=== PATIENT | male | born 1955 | race Caucasian/White ===

== ENCOUNTER 2019-09-06 05:00 | Inpatient (IN) | payer MEDICARE, OTHER, SELFPAY ==
[2019-09-06] VITALS (9 sets, daily range): BP systolic 158–180; BP diastolic 71–102; PULSE 58–73; RESP 16–26; TEMP 36–37; O2SAT 99–100
--- NOTE | ~2019-09-06 | CT_ITS ---
EXAMINATION: CT abdomen pelvis w con DATE: 09/06/2019 06:38 INDICATION: Generalized abdominal pain. TECHNIQUE: Computed tomography (CT) of the abdomen and pelvis was performed with 100 mL Omnipaque 350 intravenous contrast. Automated exposure control and iterative reconstruction technique were employe d. The dose-length product was 825.82 mGy-cm. COMPARISON: CT abdomen and pelvis 04/14/2019 FINDINGS: The visualized portions of the lung bases are clear without pneumonia or pleural effusion. The heart size is normal. No pericardial effusion. There are coronary artery calcifications. There ar e changes of fundoplication of the stomach. The wrap is partially above the diaphragm. The liver, gal lbladder, spleen, pancreas, adrenal glands, and left kidney are normal. There are cysts in right kidn ey measuring up to 15 mm. The bladder is distended. The appendix measures 8 mm without change, likely normal. There are no pathologically enlarged lymph nodes. There is no free intraperitoneal fluid. Th ere are likely changes of left inguinal hernia repair. There are chronic compression fractures of T10 and T11. There are chronic burst fractures of L1 and L3 with changes of vertebroplasty. IMPRESSION: 1. Fundoplication with wrap partially above the diaphragm without change. Reviewed, dictated and finalized at location A.
--- NOTE | 2019-09-06 05:13 | ED.ABDPAIN ---
HPI - Abdominal Pain General Chief Complaint: Abdominal Pain <Saad Browning DO - Last Filed: 09/06/19 05:15> Stated Complaint: abd pain <Saad Browning DO - Last Filed: 09/06/19 05:15> Time Seen by Provider: 09/06/19 05:02 <Saad Browning DO - Last Filed: 09/06/19 05:15> Source: RN notes reviewed <Saad Browning DO - Last Filed: 09/06/19 05:15> History of Present Illness HPI narrative: Patient presents emergency department from home for abdominal pain. Patient states symptoms began earlier today. The abdominal pain is located diffusely throughout the abdomen with increased tenderness in the upper abdominal region. Patient states symptoms are associated with nausea and vomiting. Denies any fevers or chills chest pain shortness of breath diarrhea or any other symptoms. States last bowel movement was yesterday. <Saad Browning DO - Last Filed: 09/06/19 05:15> Related Data Home Medications: Home Medications Medication Instructions Recorded Confirmed amitriptyline 25 mg PO HS 04/10/19 04/14/19 escitalopram oxalate [Lexapro] 10 mg PO DAILY 04/10/19 04/14/19 rosuvastatin [Crestor] 20 mg PO DAILY 04/10/19 04/14/19 <Saad Browning DO - Last Filed: 09/06/19 05:15> Allergies/Adverse Reactions: Allergies Allergy/AdvReac Type Severity Reaction Status Date / Time morphine AdvReac Mild Itching Verified 09/06/19 08:06 <Saad Browning DO - Last Filed: 09/06/19 05:15> Review of Systems Review of Systems: Narrative: Gen.: Denies fevers or chills Eyes: Denies eye pain or visual change ENT: Denies congestion Respiratory: Denies shortness of breath or cough CV: Denies chest pain or palpitations GI: See HPI Musculoskeletal: Denies back pain or muscle pain Neuro: Denies numbness, tingling, weakness or focal weakness Skin: Denies rash Except as documented, all other systems reviewed and negative <Saad Browning DO - Last Filed: 09/06/19 05:15> PMFSH Past Medical History Medical History: Medical History Anxiety Bipolar disorder 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 Hyperlipidemia Hypertension Hypothyroidism Obstructive sleep apnea Pre-diabetes Hemoglobin A1c was 6.1 on April 11, 2019. Reflux esophagitis SBO (small bowel obstruction) <Saad Browning DO - Last Filed: 09/06/19 05:15> Surgical History Surgical History: Surgical History (Updated 04/15/19 @ 01:34 by Dia Teixeira PA-C) History of kyphoplasty L1. History of repair of hiatal hernia June 2018, with redo shortly thereafter. Performed at the [facility] in [place]. Hx of excision of Zenker's diverticulum September 2018 at [facility]. <Saad Browning DO - Last Filed: 09/06/19 05:15> Social History Social History: Social History Social History: He lives in his own home in [place]. His ex- in her son are currently living with him. 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 He gets most of [facility] at the [facility] [place]. He smoked up to 2 packs of cigarettes per day and quit about 4 years ago. He used to abuse alcohol and stopped drinking 4 years ago. He smokes medical marijuana approximately 3 times per day due to chronic pain. Formally, he was addicted to prescription opioids. His sister and a friend are his emergency contacts. He wishes to be a full code. Smoking status: Former smoker Tobacco type: cigarettes Second hand tobacco smoke exposure: Yes Smoking end date: 04/05/15 Alcohol intake: former Substance use: current Substance use type: marijuana Last use: 04/13/19 Gender identity (if verbalized by the patient): Male Spiritual care concerns: No Agree to blood products: Yes <Elizabeth Banerjee
[2019-09-06] MEDS: HYDROMORPHONE HCL 1 MG/ML INJ IV PUSH ×2 (05:25→09:08)
[2019-09-06] MEDS: ONDANSETRON INJ 4 MG/2 ML VIAL IV PUSH ×3 (05:25→14:14)
[2019-09-06] MEDS: SODIUM CHLORIDE 0.9% IV 1,000 ML 999 ML IV CONT ×2 (05:25→06:52)
[2019-09-06 05:36] LABS: Basophils Percent Auto 0.2 % (0.2-1.2); Eosinophils Absolute Auto 0.2 K/mm3 (0-0.3); Eosinophils Percent Auto 1.5 % (0-4.4); Hematocrit 47.9 % (42.0-52.0); Hemoglobin 16.5 g/dL (14.0-18.0); Immature Granulocyte Absolute 0.07 K/mm3 (0.00-0.031); Immature Granulocyte Percent A 0.6 % (0-0.5); Lymphocytes Absolute Auto 1.77 K/mm3 (0.9-3.2); Lymphocytes Percent Auto 14.4 % (18.3-44.2); Mean Corpuscular HGB Conc 34.4 g/dl (32-36); Mean Corpuscular Hemoglobin 30.8 pg (26-34); Mean Corpuscular Volume 89.5 fl (80-100); Mean Platelet Volume 10.3 fl (7.4-10.4); Monocytes Absolute Auto 0.9 K/mm3 (0.1-0.6); Monocytes Percent Auto 7.2 % (2.6-8.5); Neutrophils Absolute Auto 9.4 K/mm3 (1.3-6.7); Neutrophils Percent Auto 76.1 % (45.5-73.1); Platelet Count Result 243 k/mm3 (150-375); Red Blood Count 5.35 M/mm3 (4.6-6.20); White Blood Count 12.3 K/mm3 (4.5-10.0)
[2019-09-06 05:51] LABS: Lipase 24 U/L (23-300)
[2019-09-06 06:14] LABS: Albumin Level 4.7 g/dL (3.5-5.1); Alkaline Phosphatase 115 U/L (38-126); Aspartate Amino Transferase 26 U/L (17-59); Blood Urea Nitrogen 10 mg/dL (9-20); Calcium 9.8 mg/dL (8.4-10.2); Carbon Dioxide 16 mmol/L (22-30); Chloride 100 mmol/L (98-107); Estimated Glomerular Filt Rate > 60; Glucose 230 mg/dL (75-110); Lactic Acid Reflex 5.8 mmol/L (0.7-2.1); Potassium 3.9 mmol/L (3.4-5.0); Sodium 132 mmol/L (137-145)
[2019-09-06 07:10] LABS: Alanine Aminotransferase 21 U/L (4-50)
[2019-09-06 08:32] LABS: Reflex Lactic Acid Yes or No Add Lactic
[2019-09-06 08:35] LABS: Add Urine Microscopic? YES; Appearance Urine Clear (Clear); Bilirubin Urine Negative (Negative); Blood Urine Negative (Negative); Color Urine Colorless (Yellow); Glucose Urine UA 2+ mg/dL (Negative); Ketones Urine 1+ mg/dL (Negative); Leukocyte Esterase Ur Negative LEU/UL (Negative); Nitrate Urine Negative (Negative); Protein Urine Negative (Negative); Urobilinogen Urine Negative mg/dL (<2.0); WBC Urine 0-3 /hpf
[2019-09-06 08:41] LABS: Specific Grav Ur 1.032 (1.001-1.035)
[2019-09-06] MEDS: LACTATED RINGERS 1,000 ML 150 ML IV CONT ×2 (09:06→17:45)
[2019-09-06 09:12] LABS: Lactic Acid 3.5 mmol/L (0.7-2.1)
[2019-09-06] MEDS: HYDROMORPHONE HCL 1 MG/ML INJ 0.5 MG IV PUSH ×2 (14:10→15:09)
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
[2019-09-06] MEDS: LORATADINE 10 MG TABLET PO (14:56)
[2019-09-06] MEDS: atenoloL 25 MG TABLET PO (14:56)
[2019-09-06] MEDS: ESCITALOPRAM OXALATE 10 MG TABLET 20 MG PO (14:56)
[2019-09-06] MEDS: SIMETHICONE 80 MG TAB.CHEW PO ×3 (14:56→20:51)
[2019-09-06] MEDS: SIMVASTATIN 20 MG TABLET PO (17:44)
[2019-09-06] MEDS: FLUTICASONE PROPIONATE 0.05% NA SPR 16 GM BTL (*BKC) 2 SPRAY NASAL (17:44)
[2019-09-06] MEDS: LORAZEPAM INJ 2 MG/ML VIAL 1 MG IV PUSH (18:02)
[2019-09-06] MEDS: SENNOSIDES 8.6 MG TABLET PO (20:51)
[2019-09-06] MEDS: AMITRIPTYLINE HCL 25 MG TABLET 50 MG PO (20:51)
[2019-09-06] MEDS: PANTOPRAZOLE SODIUM IV 40 MG VIAL IV PUSH (20:52)
[2019-09-06] MEDS: polyethylene glycoL 3350 17 GM POWD.PACK PO (20:52)
[2019-09-07 04:55] LABS: Basophils Percent Auto 0.2 % (0.2-1.2); Eosinophils Percent Auto 0.2 % (0-4.4); Hematocrit 42.9 % (42.0-52.0); Hemoglobin 14.6 g/dL (14.0-18.0); Immature Granulocyte Absolute 0.07 K/mm3 (0.00-0.031); Immature Granulocyte Percent A 0.6 % (0-0.5); Lymphocytes Absolute Auto 1.77 K/mm3 (0.9-3.2); Lymphocytes Percent Auto 14.9 % (18.3-44.2); Mean Corpuscular Hemoglobin 30.9 pg (26-34); Mean Corpuscular Volume 90.9 fl (80-100); Mean Platelet Volume 9.8 fl (7.4-10.4); Monocytes Percent Auto 8.5 % (2.6-8.5); Neutrophils Percent Auto 75.6 % (45.5-73.1); Platelet Count Result 202 k/mm3 (150-375); Red Blood Count 4.72 M/mm3 (4.6-6.20); Red Cell Distribution Width 13.2 % (11.5-14.5); White Blood Count 11.9 K/mm3 (4.5-10.0)
[2019-09-07 05:14] LABS: Hemoglobin A1C 6.2 % (<5.7)
[2019-09-07 05:45] LABS: Alanine Aminotransferase 11 U/L (4-50); Albumin Level 3.8 g/dL (3.5-5.1); Alkaline Phosphatase 73 U/L (38-126); Aspartate Amino Transferase 22 U/L (17-59); Bilirubin,Total 0.5 mg/dL (0.2-1.3); Blood Urea Nitrogen 8 mg/dL (9-20); Calcium 8.6 mg/dL (8.4-10.2); Carbon Dioxide 26 mmol/L (22-30); Chloride 102 mmol/L (98-107); Estimated Glomerular Filt Rate > 60; Glucose 115 mg/dL (75-110); Magnesium 1.9 mg/dL (1.6-2.3); Potassium 3.8 mmol/L (3.4-5.0); Sodium 135 mmol/L (137-145)
[2019-09-07 06:00] VITALS: BP 105/81; PULSE 58; RESP 18; TEMP 36.7; O2SAT 100
[2019-09-07] MEDS: LEVOTHYROXINE SODIUM 75 MCG TABLET PO (06:21)
[2019-09-07] MEDS: SIMETHICONE 80 MG TAB.CHEW PO ×6 (06:21→20:20)
[2019-09-07] MEDS: LACTATED RINGERS 1,000 ML 150 ML IV CONT (06:52)
[2019-09-07] MEDS: ONDANSETRON INJ 4 MG/2 ML VIAL IV PUSH ×2 (06:54→17:21)
[2019-09-07] MEDS: HYDROMORPHONE HCL 1 MG/ML INJ 0.5 MG IV PUSH ×2 (06:54→17:22)
[2019-09-07] MEDS: LORATADINE 10 MG TABLET PO (08:09)
[2019-09-07] MEDS: PANTOPRAZOLE SODIUM IV 40 MG VIAL IV PUSH ×2 (08:09→20:20)
[2019-09-07] MEDS: ESCITALOPRAM OXALATE 10 MG TABLET 20 MG PO (08:09)
[2019-09-07 08:10] VITALS: PULSE 60
[2019-09-07] MEDS: atenoloL 25 MG TABLET PO (08:10)
--- NOTE | 2019-09-07 11:27 | PM.IMPN ---
Progress Note: A&P Assessment and Plan (1) Nausea & vomiting: Qualifiers: Vomiting Intractability: non-intractable Vomiting type: unspecified Qualified Code(s): R11.2 - Nausea with vomiting, unspecified Code(s): R11.2 - Nausea with vomiting, unspecified Status: Acute Assessment and Plan: Likely related to prior surgery with gastric fundoplication as well as excision of Zenker diverticulum Continue conservative management (2) Lactic acidosis: Code(s): E87.2 - Acidosis Status: Acute Assessment and Plan: Chronically lactic acidemia worsened with spells of nausea vomiting (3) Pre-diabetes: Code(s): R73.03 - Prediabetes Status: Chronic Assessment and Plan: Diabetic diet when advanced Monitor sugars (4) Hypothyroidism: Qualifiers: Hypothyroidism type: acquired Qualified Code(s): E03.9 - Hypothyroidism, unspecified Code(s): E03.9 - Hypothyroidism, unspecified Status: Chronic (5) Hypertension: Qualifiers: Hypertension type: essential hypertension Qualified Code(s): I10 - Essential (primary) hypertension Code(s): I10 - Essential (primary) hypertension Status: Chronic (6) Hx of excision of Zenker's diverticulum: Code(s): Z98.890 - Other specified postprocedural states; Z87.19 - Personal history of other diseases of the digestive system Status: Chronic (7) History of repair of hiatal hernia: Code(s): Z98.890 - Other specified postprocedural states; Z87.19 - Personal history of other diseases of the digestive system Status: Chronic Subjective Date/time seen: 09/07/19 11:27 Interval history: Admitted September 05 with upper abdominal pain nausea vomiting and lactic acidosis. Patient has a history of 2 fundoplication is a performed by a thoracic surgeon at the [facility] in [place]. Since then he has had recurrent episodes of abdominal pain nausea vomiting with elevated lactate. 09/06 having much less upper abdominal pain. No further emesis. Tolerating clear liquids. Denied chest pain or shortness of breath. Denied abnormal bleeding. Denied focal weakness or numbness. Denied swelling. Review of Systems Review of Systems: All systems reviewed & are unremarkable except as noted in HPI and below Exam Narrative: Exam Narrative: HEENT: EOMI, PERRL, sclera nonicteric, pharyngeal mucosa pink and intact NECK: No JVD CHEST: Clear to auscultation. Normal effort. HEART: NL S1/S2, regular, no murmur ABDOMEN: BS+, soft, nontender, no mass, no bruits EXTREMITIES: No cyanosis, edema, or clubbing NEUROLOGIC: CN intact and symmetric to inspection. MUSCULOSKELETAL: Tone and strength symmetric. PSYCH: Alert. Oriented to person, place, and time. Objective Data Vital Signs Vital Signs: Vital Signs - 24 hr 09/06/19 14:00 09/06/19 14:56 09/06/19 20:00 Temperature 98.2 F Pulse Rate 58 L 58 L 58 L Respiratory Rate 16 16 Blood Pressure 163/89 H Pulse Oximetry 100 100 09/06/19 22:00 09/07/19 06:00 09/07/19 08:10 Temperature 98.6 F 98.0 F Pulse Rate 65 58 L 60 Respiratory Rate 18 18 Blood Pressure 158/71 H 105/81 Pulse Oximetry 100 100 Intake/Output Intake/Output: Intake & Output 09/04/19 09/05/19 09/06/19 09/07/19 23:59 23:59 23:59 23:59 Intake Total 3450 2030 Balance 3450 2030 Meds/Results Medications: Active Medications Generic Name Dose Route Start Last Admin Trade Name Freq PRN Reason Stop Dose Admin Amitriptyline HCl 50 mg 09/06/19 21:00 09/06/19 20:51 Elavil PO 50 mg HS SREE Administration Atenolol 25 mg 09/06/19 09:00 09/07/19 08:10 Tenormin PO 25 mg DAILY SREE Administration Escitalopram Oxalate 20 mg 09/06/19 09:00 09/07/19 08:09 Lexapro PO 20 mg DAILY SREE Administration Fluticasone Propionate 2 spray 09/06/19 09:00 09/07/19 08:10 Flonase 0.05% Nasal [place] NASAL Not Given DAILY SREE
[2019-09-07 14:00] VITALS: BP 128/75; PULSE 54; RESP 18; TEMP 36.9; O2SAT 99
[2019-09-07] MEDS: LACTATED RINGERS 1,000 ML 100 ML IV CONT (15:18)
[2019-09-07] MEDS: SIMVASTATIN 20 MG TABLET PO (17:21)
[2019-09-07] MEDS: SENNOSIDES 8.6 MG TABLET PO (20:19)
[2019-09-07] MEDS: polyethylene glycoL 3350 17 GM POWD.PACK PO (20:20)
[2019-09-07] MEDS: AMITRIPTYLINE HCL 25 MG TABLET 50 MG PO (20:20)
[2019-09-07 21:23] VITALS: BP 139/82; PULSE 58; RESP 16; TEMP 36.3; O2SAT 97
[2019-09-08] MEDS: LACTATED RINGERS 1,000 ML 100 ML IV CONT (01:44)
[2019-09-08 04:55] LABS: Hematocrit 41.1 % (42.0-52.0); Mean Corpuscular HGB Conc 34.1 g/dl (32-36); Mean Corpuscular Hemoglobin 30.9 pg (26-34); Mean Corpuscular Volume 90.7 fl (80-100); Mean Platelet Volume 9.6 fl (7.4-10.4); Platelet Count Result 144 k/mm3 (150-375); Red Blood Count 4.53 M/mm3 (4.6-6.20); Red Cell Distribution Width 13.2 % (11.5-14.5)
[2019-09-08 05:05] LABS: Blood Urea Nitrogen 10 mg/dL (9-20); Calcium 8.3 mg/dL (8.4-10.2); Carbon Dioxide 31 mmol/L (22-30); Chloride 103 mmol/L (98-107); Estimated Glomerular Filt Rate > 60; Glucose 96 mg/dL (75-110); Potassium 3.5 mmol/L (3.4-5.0); Sodium 135 mmol/L (137-145)
[2019-09-08 05:06] LABS: Lactic Acid 0.7 mmol/L (0.7-2.1)
[2019-09-08 05:21] VITALS: BP 141/78; PULSE 64; RESP 16; TEMP 36.4; O2SAT 99
[2019-09-08] MEDS: SIMETHICONE 80 MG TAB.CHEW PO ×2 (05:58→09:05)
[2019-09-08] MEDS: LEVOTHYROXINE SODIUM 75 MCG TABLET PO (05:58)
[2019-09-08 08:00] VITALS: PULSE 64; RESP 16; O2SAT 99
--- NOTE | 2019-09-08 08:30 | PM.DS ---
DS: Diagnosis Admitting Diagnosis Admitting Diagnosis: Generalized abdominal pain Discharge Diagnosis (1) Nausea & vomiting: Qualifiers: Vomiting Intractability: non-intractable Vomiting type: unspecified Qualified Code(s): R11.2 - Nausea with vomiting, unspecified Code(s): R11.2 - Nausea with vomiting, unspecified Status: Acute Assessment and Plan: Likely related to prior surgery with gastric fundoplication as well as excision of Zenker diverticulum Continue conservative management (2) Lactic acidosis: Code(s): E87.2 - Acidosis Status: Acute Assessment and Plan: Chronically lactic acidemia worsened with spells of nausea vomiting (3) Pre-diabetes: Code(s): R73.03 - Prediabetes Status: Chronic Assessment and Plan: Diabetic diet when advanced Monitor sugars (4) Hypothyroidism: Qualifiers: Hypothyroidism type: acquired Qualified Code(s): E03.9 - Hypothyroidism, unspecified Code(s): E03.9 - Hypothyroidism, unspecified Status: Chronic (5) Hypertension: Qualifiers: Hypertension type: essential hypertension Qualified Code(s): I10 - Essential (primary) hypertension Code(s): I10 - Essential (primary) hypertension Status: Chronic (6) Hx of excision of Zenker's diverticulum: Code(s): Z98.890 - Other specified postprocedural states; Z87.19 - Personal history of other diseases of the digestive system Status: Chronic (7) History of repair of hiatal hernia: Code(s): Z98.890 - Other specified postprocedural states; Z87.19 - Personal history of other diseases of the digestive system Status: Chronic DS: Summary Hospital Course Reason for hospitalization: Abdominal pain Hospital Course: Patient presented with recurrent upper abdominal pain nausea vomiting and lactic acidosis. Similar episodes in the past. Began occurring after fundoplication was performed for severe acid reflux and Zenker divertiulum was repaired. He had followed up with his thoracic surgeon at the [facility] and conservative treatment was recommended. He has a referral for a 2nd opinion with a non [facility] surgeon. He was again treated conservatively with IV fluids analgesics and antiemetics. By the 3rd day of hospitalization he was feeling much better. His lactic acid normalized. He was tolerating his diet. Status at Discharge Overall status at discharge: patient is not back to baseline Time Spent with Patient Time attestation: Total time spent providing and/or coordinating discharge services: 35 min Exam Narrative: Exam Narrative: HEENT: EOMI, PERRL, sclera nonicteric, pharyngeal mucosa pink and intact NECK: No JVD CHEST: Clear to auscultation. Normal effort. HEART: NL S1/S2, regular, no murmur ABDOMEN: BS+, soft, nontender, no mass, no bruits EXTREMITIES: No cyanosis, edema, or clubbing NEUROLOGIC: CN intact and symmetric to inspection. MUSCULOSKELETAL: Tone and strength symmetric. PSYCH: Alert. Oriented to person, place, and time. DS: Data Data Completed and Pending Labs on day of discharge: Labs from last 24 hours 09/08/19 09/08/19 09/08/19 04:47 04:47 04:47 WBC 8.0 RBC 4.53 L Hgb 14.0 Hct 41.1 L MCV 90.7 MCH 30.9 MCHC 34.1 RDW 13.2 Plt Count 144 L MPV 9.6 Sodium 135 L Potassium 3.5 Chloride 103 Carbon Dioxide 31 H BUN 10 Creatinine 0.80 Estim Creat Clear Calc Not Reportable Estimated GFR > 60 Glucose 96 Lactic Acid 0.7 Calcium 8.3 L Discharge Plan Discharge Consulting providers: Luma Blue ; Natan Contreras V. Discharging Clinician: Aubrey Mejía Patient Disposition: Home, Self-Care Activity: as tolerated Diet: low sodium Patient Instructions: Antibiotic Form, Pain Management (GEN) Stand Alone Forms: General Discharge Information Follow-up/Referrals: Flako,Mathew Atkins MD [[facility]
[2019-09-08] MEDS: PANTOPRAZOLE SODIUM IV 40 MG VIAL IV PUSH (09:05)
[2019-09-08] MEDS: ESCITALOPRAM OXALATE 10 MG TABLET 20 MG PO (09:05)
[2019-09-08 09:06] VITALS: PULSE 64
[2019-09-08] MEDS: LORATADINE 10 MG TABLET PO (09:06)
[2019-09-08] MEDS: atenoloL 25 MG TABLET PO (09:06)
[2019-09-08] MEDS: FLUTICASONE PROPIONATE 0.05% NA SPR 16 GM BTL (*BKC) 2 SPRAY NASAL (09:07)
== END 2019-09-08 09:35 | disposition home or self-care (01) | DRG 392 ==
LOC: ANHED 07:16 → ANH2MED 08:19
PROVIDERS: Nurse Practitioner; Admitting Provider Internal Medicine; Emergency Provider Emergency Medicine; PCP Internal Medicine; Visit Provider Internal Medicine
DX: R11.2 Nausea with vomiting, unspecified (principal); E87.2 Acidosis; R10.84 Generalized abdominal pain; Z98.890 Other specified postprocedural states; Z87.19 Personal history of other diseases of the digestive system; R73.03 Prediabetes; E03.9 Hypothyroidism, unspecified; I10 Essential (primary) hypertension; F31.9 Bipolar disorder, unspecified; F41.9 Anxiety disorder, unspecified; E78.5 Hyperlipidemia, unspecified; G47.33 Obstructive sleep apnea (adult) (pediatric); K21.0 Gastro-esophageal reflux disease with esophagitis; Z87.891 Personal history of nicotine dependence; K46.9 Unspecified abdominal hernia without obstruction or gangrene
CPT/HCPCS: 36415; 74177; 80048; 80053; 81001; 83036; 83605; 83690; 83735; 84443; 85025; 85027; 96361; 96374; 96375; 96376; 99285; A9270; C9113; G0378; J1170; J2060; J2405; J7030; J7120; Q9967

== ENCOUNTER 2019-11-05 10:23 | Inpatient (IN) | payer MEDICARE, OTHER, SELFPAY ==
--- NOTE | ~2019-11-05 | XR_ITS ---
EXAMINATION: XR chest 1V portable DATE: 11/05/2019 12:10 INDICATION: Chest pain TECHNIQUE: frontal view of the chest was obtained. COMPARISON: Chest radiograph dated 02/23/2019 FINDINGS: The lungs remain clear with no focal airspace opacities, pulmonary edema, pleural effusion or pneumot horax. The cardiomediastinal silhouette is normal. 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 Few chronic compression fractures in the lower thoracic spine. IMPRESSION: 1. No acute cardiopulmonary disease. Reviewed, dictated and finalized at location A.
--- NOTE | ~2019-11-05 | CT_ITS ---
EXAMINATION: CT abdomen pelvis w con DATE: 11/05/2019 12:43 INDICATION: Abdominal pain and nausea. TECHNIQUE: Computed tomography (CT) of the abdomen and pelvis was performed with 100 mL Omnipaque-350 intravenous contrast. Automated exposure control and iterative reconstruction technique were employe d. The dose-length product was 765.07 mGy-cm. COMPARISON: 09/06/2019 FINDINGS: Lung bases are clear. Heart size is normal. No pericardial or pleural effusion. Small sliding-type hi atal hernia with change of likely Saranya fundoplication with a portion of the wrap extending above th e level of the diaphragm. Liver, gallbladder, spleen, pancreas, bilateral adrenal glands and left kid vance are normal. 1.6 cm right renal cyst. Bowels including the appendix are normal. Bladder is normal. Postoperative change of left inguinal hernia repair. No free intraperitoneal gas or fluid. No pathol ogically enlarged abdominal or pelvic lymphadenopathy. Chronic compression fractures at T10 and T11 a nd chronic burst fractures with change of prior vertebroplasty at L1 and L3. IMPRESSION: 1. No acute intra-abdominal/pelvic process. 2. Unchanged Saranya fundoplication with the wrap partially above level of the diaphragm. Reviewed, dictated and finalized at location A. IMPRESSION: 1. No acute intra-abdominal/pelvic process. 2. Unchanged Saranya fundoplication with the wrap partially above level of the d iaphragm.
[2019-11-05 11:00] VITALS: BP 139/90; PULSE 80; RESP 20; TEMP 36.1; O2SAT 98
[2019-11-05 11:13] LABS: Basophils Absolute Auto 0.1 K/mm3 (0.0-0.1); Basophils Percent Auto 0.4 % (0.2-1.2); Eosinophils Absolute Auto 0.2 K/mm3 (0-0.3); Eosinophils Percent Auto 1.1 % (0-4.4); Hemoglobin 16.8 g/dL (14.0-18.0); Immature Granulocyte Percent A 0.6 % (0-0.5); Lymphocytes Absolute Auto 2.09 K/mm3 (0.9-3.2); Lymphocytes Percent Auto 12.9 % (18.3-44.2); Mean Corpuscular Hemoglobin 31.5 pg (26-34); Mean Corpuscular Volume 90.1 fl (80-100); Mean Platelet Volume 10.4 fl (7.4-10.4); Monocytes Absolute Auto 0.9 K/mm3 (0.1-0.6); Monocytes Percent Auto 5.5 % (2.6-8.5); Neutrophils Absolute Auto 12.8 K/mm3 (1.3-6.7); Neutrophils Percent Auto 79.5 % (45.5-73.1); Platelet Count Result 264 k/mm3 (150-375); Red Blood Count 5.33 M/mm3 (4.6-6.20); Red Cell Distribution Width 12.8 % (11.5-14.5); White Blood Count 16.1 K/mm3 (4.5-10.0)
[2019-11-05 11:27] LABS: Albumin Level 4.6 g/dL (3.5-5.1); Alkaline Phosphatase 120 U/L (38-126); Aspartate Amino Transferase 25 U/L (17-59); Bilirubin,Total 0.5 mg/dL (0.2-1.3); Blood Urea Nitrogen 11 mg/dL (9-20); Calcium 9.5 mg/dL (8.4-10.2); Carbon Dioxide 16 mmol/L (22-30); Chloride 101 mmol/L (98-107); Estimated CRCL calculation 94 ml/min; Estimated Glomerular Filt Rate > 60; Glucose 226 mg/dL (75-110); Lipase 87 U/L (23-300); Potassium 3.7 mmol/L (3.4-5.0); Sodium 132 mmol/L (137-145)
[2019-11-05 11:28] LABS: Lactic Acid Reflex 7.1 mmol/L (0.7-2.1)
[2019-11-05 11:37] LABS: Alanine Aminotransferase 20 U/L (4-50)
--- NOTE | 2019-11-05 11:44 | ECG_ITS ---
Measurements Intervals Baird Rate: 75 P: AK: 0 QRS: 69 QRSD: 98 T: 57 QT: 437 QTc: 490 Interpretive Statements SINUS RHYTHM VENTRICULAR PREMATURE COMPLEX AND FREQUENT ATRIAL PREMATURE COMPLEXES EARLY PRECORDIAL R/S TRANSITION BORDERLINE ST-T WAVE ABNORMALITY- ANTEROLAT/INF LEADS PROLONGED QT INTERVAL BASELINE ARTIFACT- I, II, III, AVR, AVL, AVF, V1-V6 ABNORMAL ECG Electronically Signed On 11-05-2019 12:18:18 CDT by Stepan Baca D.O.
--- NOTE | 2019-11-05 11:46 | ED.ABDPAIN ---
HPI - Abdominal Pain General Chief Complaint: Abdominal Pain <LOUANN Badillo Last Filed: 11/05/19 14:06> Stated Complaint: abd pain, n/v <LOUANN Badillo Last Filed: 11/05/19 14:06> Time Seen by Provider: 11/05/19 11:34 <LOUANN Badillo Last Filed: 11/05/19 14:06> Source: patient <LOUANN Badillo Last Filed: 11/05/19 14:06> Mode of arrival: EMS <LOUANN Badillo Last Filed: 11/05/19 14:06> Limitations: no limitations <LOUANN Badillo Last Filed: 11/05/19 14:06> History of Present Illness HPI narrative: This is a 64 year old male that presents to the ER via EMS for abdominal pain since this morning. Reports recurrent episodes recently where he has diffuse abdominal pain, nausea and vomiting. Reports this episode worsened this morning. He was recently admitted here for this. Reports the pain is sharp and constant. Reports the pain radiates into his chest. Reports the pain makes him short of breath. Reports he feels distended. He has been unable to have a bowel movement. Denies fever, diarrhea, dysuria or hematuria. <LOUANN Badillo Last Filed: 11/05/19 14:06> Related Data Home Medications: Home Medications Medication Instructions Recorded Confirmed amitriptyline 50 mg PO HS 04/10/19 11/05/19 escitalopram oxalate [Lexapro] 20 mg PO DAILY 04/10/19 11/05/19 Zyrtec 10 mg PO DAILY 09/06/19 11/05/19 atenolol 25 mg PO DAILY 09/06/19 11/05/19 fluticasone propionate [Flonase 2 spray INTRANASAL DAILY 09/06/19 11/05/19 Allergy Relief] pantoprazole 40 mg PO QAM 09/06/19 11/05/19 simethicone 80 mg PO 6XD 09/06/19 11/05/19 simvastatin 20 mg PO QPM 09/06/19 11/05/19 <LOUANN Badillo Last Filed: 11/05/19 14:06> Allergies/Adverse Reactions: Allergies Allergy/AdvReac Type Severity Reaction Status Date / Time morphine AdvReac Mild Itching Verified 09/06/19 08:06 <Mayra Gifford PA-C - Last Filed: 11/05/19 14:06> Review of Systems Review of Systems: Narrative: CONSTITUTIONAL: Denies fever CARDIOVASCULAR: Reports chest pain. Denies edema. RESPIRATORY: Reports dyspnea. Denies cough GASTROINTESTINAL: Reports abdominal pain, nausea, vomiting. Denies diarrhea. GENITOURINARY: Denies dysuria or hematuria. 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 Hiatal hernia Hyperlipidemia Hypertension Hypothyroidism Obstructive sleep apnea Pre-diabetes Hemoglobin A1c was 6.1 on April 11, 2019. Reflux esophagitis SBO (small bowel obstruction) <Mayra Gifford PA-C - Last Filed: 11/05/19 14:06> Surgical History Surgical History: Surgical History (Updated 04/15/19 @ 01:34 by Dia Teixeira PA-C) History of kyphoplasty L1. History of repair of hiatal hernia June 2018, with redo shortly thereafter. Performed at the [facility] in [place]. Hx of excision of Zenker's diverticulum September 2018 at [facility]. <Mayra Gifford PA-C - Last Filed: 11/05/19 14:06> Social History Social History: Social History (Updated 09/06/19 @ 14:33 by Luma Blue NP) Social History: He lives in his own home in [place]. His ex- in her son are currently living with him. 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 He gets most of his care at the [facility] in [place]. He smoked up to 2 packs of cigarettes per day and quit about 4 years ago. He used to abuse alcohol and stopped drinking 4 years ago. He smokes medical marijuana approximately 3 times per day due to chronic pain. Formally, he was
[2019-11-05 11:51] LABS: Beta-Hydroxybutyrate/Acetoacetate 0.83 mmol/L (0.02-0.27)
[2019-11-05] MEDS: MORPHINE SULFATE 4 MG/ML INJ IV PUSH (11:52)
[2019-11-05] MEDS: SODIUM CHLORIDE 0.9% IV 1,000 ML 999 ML IV CONT ×2 (11:52→13:49)
[2019-11-05] MEDS: ONDANSETRON INJ 4 MG/2 ML VIAL IV PUSH (11:52)
[2019-11-05 11:53] LABS: Alveolar/Arterial O2 Gradient 0.1 mmHg; Base Excess ABG -3.5 mEq/l (+/-2.0); Carboxyhemoglobin 1.1 % THb (0-2.0); Fractional Inspired Oxygen 21 %; Methemoglobin ABG 0.3 %THb (0-1.5); Oxygen Content ABG 22.9 %vol (16.0-22.0); Oxygen Saturation ABG 99.3 % (95.0-100.0); Oxyhemoglobin 97.4 % THb (90.0-100.0); PO2 ABG 136.6 mmHg (80.0-100.0); Reduced Hemoglobin 1.2 %THb (0-5.0); Total Hemoglobin 16.6 g/dL (12.0-18.0)
[2019-11-05 11:54] LABS: Device ROOM AIR; Modified Allen's Test Pass; PCO2 ABG 10.9 mmHg (35.0-45.0); Site Drawn RIGHT RADIAL
[2019-11-05 12:09] LABS: Troponin I < 0.012 ng/mL (0.000-0.034)
--- NOTE | 2019-11-05 12:18 | PC.NURSE ---
Lying on cart moaning. Refuses to attempt to urinate. Demanding more pain med, erp aware.
--- NOTE | 2019-11-05 13:06 | PC.NURSE ---
Quiet on cart unless staff present then pt starts moaning and requesting pain meds.
[2019-11-05 14:10] LABS: Reflex Lactic Acid Yes or No Add Lactic
[2019-11-05] MEDS: HYDROMORPHONE HCL 1 MG/ML INJ IV PUSH (14:11)
[2019-11-05 14:43] LABS: Hemoglobin A1C 6.2 % (<5.7)
[2019-11-05 14:51] LABS: Lactic Acid 6.6 mmol/L (0.7-2.1)
[2019-11-05 15:55] VITALS: BP 131/89; PULSE 87; RESP 20; O2SAT 98
[2019-11-05 16:15] VITALS: BP 185/92; PULSE 87; RESP 20; O2SAT 98
[2019-11-05 16:32] VITALS: BMI 28.8
--- NOTE | 2019-11-05 16:37 | ADMGEN ---
This patient, Fredo Gallegos, was admitted to [facility] Surg Room 315-01. Patient/family oriented to hospital policies and general routines including ID bracelet, bed and alarms, visiting hours, pain management, procedures, bathroom and other care routines, personal items, smoking policy, room service/diet, and visiting hours. Valuables list has been completed. Information on how to activate the Rapid Response Team has been discussed. Patient/Family are encouraged to report perceived risks to care and to ask questions if they do not understand what they are told or what they should do. Pt arrived to the floor screaming and writhing in pain, but calms when no one is around. States he would like some ativan and some of that d medicine.
[2019-11-05] MEDS: SODIUM CHLORIDE 0.9% IV 1,000 ML 125 ML IV CONT (16:45)
[2019-11-05 16:48] VITALS: BP 180/95; PULSE 85; RESP 16; TEMP 35.3; O2SAT 95
--- NOTE | 2019-11-05 17:30 | PM.IMHP ---
H&P: HPI History of Present Illness Chief complaint: Abdominal pain. <Dia Teixeira PA-C - Last Filed: 11/05/19 21:10> Narrative: Fredo Gallegos is a 64-year-old male with history of several abdominal surgeries and partial small-bowel obstructions who presented to the emergency department earlier today via EMS from home for evaluation of abdominal pain. His medical history is also significant for GERD, bipolar disorder, anxiety, hypertension, hyperlipidemia, hypothyroidism, sleep apnea, and pre diabetes. He is status post excision of a a reported large Zenker diverticulum and fundoplication x2 in June 2018. Since that time, he has had intermittent problems with severe abdominal pain and lactic acidosis requiring hospitalization. He is typically admitted for IV fluid rehydration and analgesics, and he is usually able to be discharged within a day or so. He has followed up with the thoracic surgeon that did his surgeries, who reportedly felt that his imaging was unremarkable and that no further surgery would be done although he continues to have abdominal pain. He also complains of feelings of getting food and liquids stuck in his throat, and is wondering if his Zenker's diverticulum has returned. In fact, he has an upcoming appointment with an ENT specialist at [place] for a 2nd opinion. In any event, this morning he reports a sudden onset of diffuse upper abdominal pain that he has a difficult time describing. It is severe enough to the point where it doubles him over in pain, and he tells me that he hollers out due to the pain. It sounds as though he was hyperventilating due to the severity of the pain, and this is confirmed on ABG done in the emergency department. The pain seems to go away as quickly as its onset at the time my evaluation he is in good spirits and has no pain. He is wondering if perhaps his symptoms are related to stress, as each flare up seems to be related to a stressful event. Currently he is without pain or complaints. <Dia Teixeira PA-C - Last Filed: 11/05/19 21:10> Review of Systems Review of Systems: Narrative: Twelve systems were reviewed. No fever, chills, or sweats. He had significant nausea earlier today but is unable to vomit since his fundoplication. He does suffer from GERD which she takes simethicone without benefit. He has not tried Tums or Rolaids. It looks like he does take a PPI daily. He denies melena and hematemesis. No chest pain or shortness of breath. He had a normal bowel movement yesterday. Except as documented, all other systems were reviewed and are negative. <Dia Teixeira PA-C - Last Filed: 11/05/19 21:10> [facility] Past Medical History Medical History: Medical History (Updated 11/05/19 @ 21:04 by Dia Teixeira PA-C) Anxiety Bipolar disorder Gastroesophageal reflux 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 Hiatal hernia Hyperlipidemia Hypertension Hypothyroidism Obstructive sleep apnea Pre-diabetes Hemoglobin A1c was 6.1 on April 11, 2019. Reflux esophagitis SBO (small bowel obstruction) <Dia Teixeira PA-C - Last Filed: 11/05/19 21:10> Surgical History Surgical History: Surgical History (Updated 04/15/19 @ 01:34 by Dia Teixeira PA-C) History of kyphoplasty L1. History of repair of hiatal hernia June 2018, with redo shortly thereafter. Performed at the [facility] in [place]. Hx of excision of Zenker's diverticulum September 2018 at [facility]. <Dia Teixeira PA-C - Last Filed: 11/05/19 21:10> Family History Family History: Family History Mother Congestive heart failure Sibling History of spinal surgery <Dia Teixeira PA-C - Last Filed: 11/05/19 21:10> Social History Social History: Social History (Updated 11/05/19 @ 21:03 by Dia Teixeira PA-C) Soc
[2019-11-05 17:45] LABS: Add Urine Microscopic? YES; Appearance Urine Clear (Clear); Bilirubin Urine Negative (Negative); Blood Urine 1+ (Negative); Color Urine Straw (Yellow); Glucose Urine UA 2+ mg/dL (Negative); Ketones Urine 1+ mg/dL (Negative); Leukocyte Esterase Ur Negative LEU/UL (Negative); Mucus Urine Rare /lpf; Nitrate Urine Negative (Negative); Protein Urine Negative (Negative); RBC Urine 0-2 /hpf (0-2); Urobilinogen Urine Negative mg/dL (<2.0); WBC Urine 0-3 /hpf
[2019-11-05 17:50] LABS: Specific Grav Ur 1.032 (1.001-1.035)
--- NOTE | 2019-11-05 18:49 | PC.NURSE ---
Upon arrival to floor, pt was screaming, thrashing, stating I'm going to , wretching, and groaning. When I let him know I need to ask him a few questions to get him admitted and give the doc info so she can order meds, he stopped all of the previous behaviors, sat still for vitals, and carried on a normal conversation for all of his admission questions and assessment. He states pain is a 10/10, but when using a flacc scale, pt scores a 1. He reiterated multiple times how fentanyl, dilaudid and ativan are very helpful for him. He asked me to put in a good word for him so that he can get the ativan and pain shot. He would like a shot soon so that he can take a nap.
[2019-11-05] MEDS: HYDROMORPHONE HCL 1 MG/ML INJ 0.5 MG IV PUSH ×2 (19:53→22:52)
[2019-11-05 20:00] VITALS: PULSE 85
[2019-11-05] MEDS: LORAZEPAM INJ 2 MG/ML VIAL 0.5 MG IV PUSH (21:36)
[2019-11-05 22:00] VITALS: BP 169/94; PULSE 64; RESP 18; TEMP 36.4; O2SAT 100
[2019-11-06] VITALS (9 sets, daily range): BP systolic 139–152; BP diastolic 80–90; PULSE 58–104; RESP 18–20; TEMP 36.6–36.7; O2SAT 98–100
[2019-11-06] MEDS: HYDROMORPHONE HCL 1 MG/ML INJ 0.5 MG IV PUSH ×5 (02:18→15:31)
[2019-11-06] MEDS: SODIUM CHLORIDE 0.9% IV 1,000 ML 125 ML IV CONT (02:19)
[2019-11-06] MEDS: SIMETHICONE 80 MG TAB.CHEW PO ×6 (05:51→20:59)
[2019-11-06] MEDS: LEVOTHYROXINE SODIUM 75 MCG TABLET PO (05:52)
[2019-11-06 07:03] LABS: Basophils Percent Auto 0.2 % (0.2-1.2); Eosinophils Percent Auto 0.3 % (0-4.4); Hematocrit 44.8 % (42.0-52.0); Hemoglobin 15.3 g/dL (14.0-18.0); Immature Granulocyte Percent A 0.8 % (0-0.5); Lymphocytes Absolute Auto 1.86 K/mm3 (0.9-3.2); Lymphocytes Percent Auto 14.6 % (18.3-44.2); Mean Corpuscular HGB Conc 34.2 g/dl (32-36); Mean Corpuscular Hemoglobin 31.5 pg (26-34); Mean Corpuscular Volume 92.2 fl (80-100); Mean Platelet Volume 10.1 fl (7.4-10.4); Monocytes Absolute Auto 0.9 K/mm3 (0.1-0.6); Monocytes Percent Auto 7.4 % (2.6-8.5); Neutrophils Absolute Auto 9.8 K/mm3 (1.3-6.7); Neutrophils Percent Auto 76.7 % (45.5-73.1); Platelet Count Result 204 k/mm3 (150-375); Red Blood Count 4.86 M/mm3 (4.6-6.20); Red Cell Distribution Width 13.2 % (11.5-14.5); White Blood Count 12.7 K/mm3 (4.5-10.0)
[2019-11-06 07:14] LABS: Alanine Aminotransferase 11 U/L (4-50); Albumin Level 4.1 g/dL (3.5-5.1); Alkaline Phosphatase 87 U/L (38-126); Aspartate Amino Transferase 20 U/L (17-59); Bilirubin,Total 0.3 mg/dL (0.2-1.3); Blood Urea Nitrogen 7 mg/dL (9-20); Calcium 8.3 mg/dL (8.4-10.2); Carbon Dioxide 25 mmol/L (22-30); Chloride 105 mmol/L (98-107); Estimated CRCL calculation 113 ml/min; Estimated Glomerular Filt Rate > 60; Glucose 119 mg/dL (75-110); Potassium 3.7 mmol/L (3.4-5.0); Sodium 137 mmol/L (137-145)
[2019-11-06 07:15] LABS: Lactic Acid 0.8 mmol/L (0.7-2.1)
[2019-11-06] MEDS: PANTOPRAZOLE 40 MG TABLET PO (07:48)
[2019-11-06] MEDS: ESCITALOPRAM OXALATE 10 MG TABLET 20 MG PO (07:48)
[2019-11-06] MEDS: LORATADINE 10 MG TABLET PO (07:49)
[2019-11-06] MEDS: atenoloL 25 MG TABLET PO (07:49)
[2019-11-06] MEDS: FLUTICASONE PROPIONATE 0.05% NA SPR 16 GM BTL (*BKC) 2 SPRAY NASAL (07:49)
--- NOTE | 2019-11-06 09:19 | ECG_ITS ---
Measurements Intervals [place] Rate: 80 P: 72 OR: 180 QRS: 39 QRSD: 96 T: 17 QT: 411 QTc: 475 Interpretive Statements SINUS RHYTHM BASELINE ARTIFACT- I, II, III, AVR, AVL, AVF, V1-V6 BORDERLINE ECG Electronically Signed On 11-06-2019 12:55:07 CDT by Stepan Baca D.O.
[2019-11-06 10:14] LABS: Troponin I 0.036 ng/mL (0.000-0.034)
[2019-11-06] MEDS: SODIUM CHLORIDE 0.9% IV 1,000 ML 100 ML IV CONT ×2 (10:59→21:04)
[2019-11-06 13:27] LABS: Troponin I 0.029 ng/mL (0.000-0.034)
--- NOTE | 2019-11-06 14:35 | PM.IMPN ---
Progress Note: A&P Assessment and Plan (1) Sudden onset of severe abdominal pain: Code(s): R10.9 - Unspecified abdominal pain Status: Acute Assessment and Plan: As per HPI, he has had recurrent episodes of such requiring hospitalization. Etiology not entirely clear, may be related to GERD or esophagitis. Reportedly his surgeon does not think the pain is related to his fundoplication. Patient admits that it tends to occur with stressful situations, and thus some of it may be functional. It sounds as though he has a tendency to hyperventilate with these episodes of pain, and I have seen some studies that show lactic acidosis with hyperventilation. At the time my evaluation he is without pain. Will continue IV fluids and analgesics as needed. Repeat lactic acid level in a.m.. 11/06/19 14:35 Patient presented with recurrent upper abdominal pain nausea vomiting and lactic acidosis. Similar episodes in the past. Began occurring after fundoplication was performed for severe acid reflux and Zenker divertiulum was repaired. Upon arrival patient lactic acid was 8.1 patient is being hydrated and pain control patient lactic acid has normalized, patient states the pain is persisting on and off sometimes so severe it has doubled him over, unfortunately this is a reoccurring for the patient, patient states overall better now with IV hydration and pain management, currently he denies any nausea or vomiting fever or chills will continue present management monitor overnight may possibly discharge him home tomorrow (2) Lactic acidosis: Code(s): E87.2 - Acidosis Status: Acute Assessment and Plan: As detailed above, etiology not entirely clear but may be related to episodes of hyperventilation. Cannot rule out intermittent were brief episodes of ischemia as he had the pain seems to be centered near prior fundoplication. CT of the abdomen and pelvis does not demonstrate findings of ischemia. He is on no medication that should be causing lactic acidosis. He denies methanol/ethanol use. No history suggest underlying infection. (3) Gastroesophageal reflux: Code(s): K21.9 - Gastro-esophageal reflux disease without esophagitis Status: Acute Assessment and Plan: Continue PPI. (4) Hypertension: Qualifiers: Hypertension type: essential hypertension Qualified Code(s): I10 - Essential (primary) hypertension Code(s): I10 - Essential (primary) hypertension Status: Chronic Assessment and Plan: Blood pressures are well controlled, except when he has episodes of pain and they will jump. Continue analgesics for pain and continue antihypertensives. (5) Hypothyroidism: Qualifiers: Hypothyroidism type: acquired Qualified Code(s): E03.9 - Hypothyroidism, unspecified Code(s): E03.9 - Hypothyroidism, unspecified Status: Chronic Assessment and Plan: Continue levothyroxine. Subjective Date/time seen: 11/06/19 14:35 Patient presented with recurrent upper abdominal pain nausea vomiting and lactic acidosis. Similar episodes in the past. Began occurring after fundoplication was performed for severe acid reflux and Zenker divertiulum was repaired. Upon arrival patient lactic acid was 8.1 patient is being hydrated and pain control patient lactic acid has normalized, patient states the pain is persisting on and off sometimes so severe it has doubled him over, unfortunately this is a reoccurring for the patient, patient states overall better now with IV hydration and pain management, currently he denies any nausea or vomiting fever or chills will continue present management monitor overnight september
[2019-11-06] MEDS: SIMVASTATIN 20 MG TABLET PO (18:54)
[2019-11-06] MEDS: SENNOSIDES 8.6 MG TABLET PO (20:59)
[2019-11-06] MEDS: AMITRIPTYLINE HCL 25 MG TABLET 50 MG PO (20:59)
[2019-11-06] MEDS: LORAZEPAM INJ 2 MG/ML VIAL 0.5 MG IV PUSH (21:00)
[2019-11-06] MEDS: polyethylene glycoL 3350 17 GM POWD.PACK PO (21:00)
[2019-11-07] VITALS (10 sets, daily range): BP systolic 136–168; BP diastolic 79–90; PULSE 57–107; RESP 18–20; TEMP 36.5–36.7; O2SAT 99–100
[2019-11-07] MEDS: HYDROMORPHONE HCL 1 MG/ML INJ 0.5 MG IV PUSH ×3 (02:48→20:22)
[2019-11-07] MEDS: LEVOTHYROXINE SODIUM 75 MCG TABLET PO (05:39)
[2019-11-07] MEDS: SIMETHICONE 80 MG TAB.CHEW PO ×6 (05:39→20:23)
[2019-11-07] MEDS: LORAZEPAM INJ 2 MG/ML VIAL 0.5 MG IV PUSH (05:43)
[2019-11-07] MEDS: FLUTICASONE PROPIONATE 0.05% NA SPR 16 GM BTL (*BKC) 2 SPRAY NASAL (08:32)
[2019-11-07] MEDS: SODIUM CHLORIDE 0.9% IV 1,000 ML 100 ML IV CONT ×2 (08:34→16:58)
[2019-11-07] MEDS: atenoloL 25 MG TABLET PO (08:35)
[2019-11-07] MEDS: PANTOPRAZOLE 40 MG TABLET PO (08:35)
[2019-11-07] MEDS: ESCITALOPRAM OXALATE 10 MG TABLET 20 MG PO (08:35)
[2019-11-07] MEDS: LORATADINE 10 MG TABLET PO (08:35)
--- NOTE | 2019-11-07 15:56 | PM.IMPN ---
Progress Note: A&P Assessment and Plan (1) Sudden onset of severe abdominal pain: Code(s): R10.9 - Unspecified abdominal pain Status: Acute Assessment and Plan: As per HPI, he has had recurrent episodes of such requiring hospitalization. Etiology not entirely clear, may be related to GERD or esophagitis. Reportedly his surgeon does not think the pain is related to his fundoplication. Patient admits that it tends to occur with stressful situations, and thus some of it may be functional. It sounds as though he has a tendency to hyperventilate with these episodes of pain, and I have seen some studies that show lactic acidosis with hyperventilation. At the time my evaluation he is without pain. Will continue IV fluids and analgesics as needed. Repeat lactic acid level in a.m.. 11/07/19 15:56 Patient presented with recurrent upper abdominal pain nausea vomiting and lactic acidosis. Similar episodes in the past. Began occurring after fundoplication was performed for severe acid reflux and Zenker divertiulum was repaired. Upon arrival patient lactic acid was 8.1 patient is being hydrated and pain control patient lactic acid has normalized, patient states the pain is persisting on and off sometimes so severe it has doubled him over, unfortunately this is a reoccurring for the patient, patient states overall better now with IV hydration and pain management, today patient states is feeling little better however is unable to eat as much the pain is still persisting and feels nauseated denies any fever or chills will continue to monitor patient more day reassess him tomorrow, he needs to follow with his surgeon for evaluation and possible correction of his surgery (2) Lactic acidosis: Code(s): E87.2 - Acidosis Status: Acute Assessment and Plan: As detailed above, etiology not entirely clear but may be related to episodes of hyperventilation. Cannot rule out intermittent were brief episodes of ischemia as he had the pain seems to be centered near prior fundoplication. CT of the abdomen and pelvis does not demonstrate findings of ischemia. He is on no medication that should be causing lactic acidosis. He denies methanol/ethanol use. No history suggest underlying infection. (3) Gastroesophageal reflux: Code(s): K21.9 - Gastro-esophageal reflux disease without esophagitis Status: Acute Assessment and Plan: Continue PPI. (4) Hypertension: Qualifiers: Hypertension type: essential hypertension Qualified Code(s): I10 - Essential (primary) hypertension Code(s): I10 - Essential (primary) hypertension Status: Chronic Assessment and Plan: Blood pressures are well controlled, except when he has episodes of pain and they will jump. Continue analgesics for pain and continue antihypertensives. (5) Hypothyroidism: Qualifiers: Hypothyroidism type: acquired Qualified Code(s): E03.9 - Hypothyroidism, unspecified Code(s): E03.9 - Hypothyroidism, unspecified Status: Chronic Assessment and Plan: Continue levothyroxine. Subjective Date/time seen: 11/07/19 15:56 Patient presented with recurrent upper abdominal pain nausea vomiting and lactic acidosis. Similar episodes in the past. Began occurring after fundoplication was performed for severe acid reflux and Zenker divertiulum was repaired. Upon arrival patient lactic acid was 8.1 patient is being hydrated and pain control patient lactic acid has normalized, patient states the pain is persisting on and off sometimes so severe it has doubled him over, unfortunately this is a reoccurring for the patient, patient states overall bet
[2019-11-07] MEDS: SIMVASTATIN 20 MG TABLET PO (18:48)
[2019-11-07] MEDS: polyethylene glycoL 3350 17 GM POWD.PACK PO (20:23)
[2019-11-07] MEDS: SENNOSIDES 8.6 MG TABLET PO (20:23)
[2019-11-07] MEDS: AMITRIPTYLINE HCL 25 MG TABLET 50 MG PO (20:23)
[2019-11-08] VITALS: PULSE 52
[2019-11-08 04:00] VITALS: PULSE 55
[2019-11-08 06:00] VITALS: BP 151/85; PULSE 60; RESP 16; TEMP 36.2; O2SAT 99
[2019-11-08] MEDS: SIMETHICONE 80 MG TAB.CHEW PO ×2 (06:05→09:11)
[2019-11-08] MEDS: LEVOTHYROXINE SODIUM 75 MCG TABLET PO (06:05)
[2019-11-08] MEDS: SODIUM CHLORIDE 0.9% IV 1,000 ML 100 ML IV CONT (06:06)
[2019-11-08 06:40] LABS: Hematocrit 42.9 % (42.0-52.0); Hemoglobin 14.9 g/dL (14.0-18.0); Mean Corpuscular HGB Conc 34.7 g/dl (32-36); Mean Corpuscular Hemoglobin 31.7 pg (26-34); Mean Corpuscular Volume 91.3 fl (80-100); Mean Platelet Volume 9.9 fl (7.4-10.4); Platelet Count Result 153 k/mm3 (150-375); Red Cell Distribution Width 12.6 % (11.5-14.5); White Blood Count 6.1 K/mm3 (4.5-10.0)
[2019-11-08 07:10] LABS: Potassium 3.3 mmol/L (3.4-5.0)
[2019-11-08 07:18] LABS: Alanine Aminotransferase 12 U/L (4-50); Albumin Level 3.5 g/dL (3.5-5.1); Alkaline Phosphatase 75 U/L (38-126); Aspartate Amino Transferase 22 U/L (17-59); Bilirubin,Total 0.6 mg/dL (0.2-1.3); Blood Urea Nitrogen 7 mg/dL (9-20); Calcium 8.3 mg/dL (8.4-10.2); Carbon Dioxide 28 mmol/L (22-30); Chloride 103 mmol/L (98-107); Estimated CRCL calculation 98 ml/min; Estimated Glomerular Filt Rate > 60; Glucose 95 mg/dL (75-110); Magnesium 1.9 mg/dL (1.6-2.3); Sodium 137 mmol/L (137-145)
[2019-11-08 08:00] VITALS: PULSE 57
[2019-11-08 09:11] VITALS: PULSE 60
[2019-11-08] MEDS: LORATADINE 10 MG TABLET PO (09:11)
[2019-11-08] MEDS: ESCITALOPRAM OXALATE 10 MG TABLET 20 MG PO (09:11)
[2019-11-08] MEDS: atenoloL 25 MG TABLET PO (09:11)
[2019-11-08] MEDS: PANTOPRAZOLE 40 MG TABLET PO (09:11)
[2019-11-08] MEDS: FLUTICASONE PROPIONATE 0.05% NA SPR 16 GM BTL (*BKC) 2 SPRAY NASAL (09:11)
[2019-11-08] MEDS: SENNOSIDES 8.6 MG TABLET PO (09:14)
[2019-11-08] MEDS: POTASSIUM CHLORIDE 20 MEQ TABLET 40 MEQ PO (09:15)
[2019-11-08] MEDS: polyethylene glycoL 3350 17 GM POWD.PACK PO (09:16)
--- NOTE | 2019-12-03 12:13 | PM.DS ---
DS: Admitting Diagnosis Admitting Diagnosis Admitting Diagnosis: Unspecified abdominal pain DS: Discharge Diagnosis Discharge Diagnosis (1) Sudden onset of severe abdominal pain: Code(s): R10.9 - Unspecified abdominal pain Status: Acute Assessment and Plan: As per HPI, he has had recurrent episodes of such requiring hospitalization. Etiology not entirely clear, may be related to GERD or esophagitis. Reportedly his surgeon does not think the pain is related to his fundoplication. Patient admits that it tends to occur with stressful situations, and thus some of it may be functional. It sounds as though he has a tendency to hyperventilate with these episodes of pain, and I have seen some studies that show lactic acidosis with hyperventilation. At the time my evaluation he is without pain. Will continue IV fluids and analgesics as needed. Repeat lactic acid level in a.m.. 11/07/19 15:56 Patient presented with recurrent upper abdominal pain nausea vomiting and lactic acidosis. Similar episodes in the past. Began occurring after fundoplication was performed for severe acid reflux and Zenker divertiulum was repaired. Upon arrival patient lactic acid was 8.1 patient is being hydrated and pain control patient lactic acid has normalized, patient states the pain is persisting on and off sometimes so severe it has doubled him over, unfortunately this is a reoccurring for the patient, patient states overall better now with IV hydration and pain management, today patient states is feeling little better however is unable to eat as much the pain is still persisting and feels nauseated denies any fever or chills will continue to monitor patient more day reassess him tomorrow, he needs to follow with his surgeon for evaluation and possible correction of his surgery (2) Lactic acidosis: Code(s): E87.2 - Acidosis Status: Acute Assessment and Plan: As detailed above, etiology not entirely clear but may be related to episodes of hyperventilation. Cannot rule out intermittent were brief episodes of ischemia as he had the pain seems to be centered near prior fundoplication. CT of the abdomen and pelvis does not demonstrate findings of ischemia. He is on no medication that should be causing lactic acidosis. He denies methanol/ethanol use. No history suggest underlying infection. (3) Gastroesophageal reflux: Code(s): K21.9 - Gastro-esophageal reflux disease without esophagitis Status: Acute Assessment and Plan: Continue PPI. (4) Hypertension: Qualifiers: Hypertension type: essential hypertension Qualified Code(s): I10 - Essential (primary) hypertension Code(s): I10 - Essential (primary) hypertension Status: Chronic Assessment and Plan: Blood pressures are well controlled, except when he has episodes of pain and they will jump. Continue analgesics for pain and continue antihypertensives. (5) Hypothyroidism: Qualifiers: Hypothyroidism type: acquired Qualified Code(s): E03.9 - Hypothyroidism, unspecified Code(s): E03.9 - Hypothyroidism, unspecified Status: Chronic Assessment and Plan: Continue levothyroxine. DS: Summary Hospital Course Reason for hospitalization: Fredo Gallegos is a 64-year-old male with history of several abdominal surgeries and partial small-bowel obstructions who presented to the emergency department earlier today via EMS from home for evaluation of abdominal pain. His medical history is also significant for GERD, bipolar disorder, anxiety, hypertension, hyperlipidemia, hypothyroidism, sleep apnea, and pre diabetes. He is status post excision of
== END 2019-11-08 12:24 | disposition home or self-care (01) | DRG 392 ==
LOC: ANHED 14:57 → ANH3MEDSUR 16:12
PROVIDERS: Physician Assistant; Admitting Provider Family Medicine; Emergency Provider General Practice; PCP Internal Medicine; Visit Provider Family Medicine
DX: R10.10 Upper abdominal pain, unspecified (principal); E87.2 Acidosis; K21.9 Gastro-esophageal reflux disease without esophagitis; I10 Essential (primary) hypertension; E03.9 Hypothyroidism, unspecified; E78.5 Hyperlipidemia, unspecified; R73.03 Prediabetes; G47.33 Obstructive sleep apnea (adult) (pediatric); F31.9 Bipolar disorder, unspecified; F41.9 Anxiety disorder, unspecified; Z79.899 Other long term (current) drug therapy; Z87.891 Personal history of nicotine dependence; Z98.890 Other specified postprocedural states
CPT/HCPCS: 36415; 36600; 71045; 74177; 80053; 81001; 82010; 82375; 82805; 83036; 83050; 83605; 83690; 83735; 84484; 85025; 85027; 93005; 96361; 96365; 96375; 99285; A9270; J0131; J1170; J2060; J2270; J2405; J7030; Q9967

== ENCOUNTER 2020-01-26 03:41 | Emergency (ER) | payer MEDICARE, OTHER, SELFPAY ==
--- NOTE | ~2020-01-26 | CT_ITS ---
EXAMINATION: CT abdomen pelvis w con INDICATION: Epigastric pain TECHNIQUE: Computed tomographic images of the abdomen and pelvis were obtained after the administrati on of 100 cc of Omnipaque 350 intravenous contrast. The dose-length product (DLP) was 763.51 mGy-cm. Automated exposure control and iterative reconstruction technique were employed. COMPARISON: 11/05/2019 FINDINGS: The lung bases are clear. The heart size is normal. There are surgical changes at the gastr oesophageal junction, likely Saranya fundoplication. Again seen is a small sliding hiatal hernia with a portion of the radiograph above the left hemidiaphragm. The liver, spleen, pancreas, gallbladder, a nd adrenal glands are normal. The left kidney is unremarkable. There is a 1.7 cm cyst of the right ki dney. There is calcified atherosclerosis of the aorta and many of the other arteries. No pathological ly enlarged abdominal or pelvic lymph nodes are identified. There is no free intraperitoneal gas or e vidence of bowel obstruction. The appendix is normal. There are unchanged L1 and L3 burst fractures w ith vertebroplasty change. Chronic T10 and 11 impression fractures are also unchanged. There is a sma ll fat-containing umbilical hernia. There is mild wall thickening of the urinary bladder. IMPRESSION: 1. Surgical changes of the gastroesophageal junction, likely reflecting Saranya fundoplication, with s mall sliding type hiatal hernia. 2. Mild wall thickening of the urinary bladder which could be due to incomplete distention, cystitis, or chronic outlet obstruction. Reviewed, dictated and finalized at location A. IMPRESSION: 1. Surgical changes of the gastroesophageal junction, likely reflecting Saranya fundoplication, with small sliding type hiatal hernia. 2. Mild wall thickening of the urinary bladder which could be due to incomplete distention, cystitis, or chronic outlet obstruction.
[2020-01-26 03:52] VITALS: BP 162/95; PULSE 82; RESP 24; TEMP 35; O2SAT 95
[2020-01-26 04:10] LABS: Basophils Absolute Auto 0.1 K/mm3 (0.0-0.1); Basophils Percent Auto 0.4 % (0.2-1.2); Eosinophils Absolute Auto 0.5 K/mm3 (0-0.3); Eosinophils Percent Auto 2.9 % (0-4.4); Hematocrit 45.8 % (42.0-52.0); Hemoglobin 16.3 g/dL (14.0-18.0); Immature Granulocyte Absolute 0.17 K/mm3 (0.00-0.031); Lymphocytes Absolute Auto 3.03 K/mm3 (0.9-3.2); Mean Corpuscular HGB Conc 35.6 g/dl (32-36); Mean Corpuscular Hemoglobin 31.7 pg (26-34); Mean Corpuscular Volume 89.1 fl (80-100); Mean Platelet Volume 9.5 fl (7.4-10.4); Monocytes Absolute Auto 1.1 K/mm3 (0.1-0.6); Monocytes Percent Auto 6.8 % (2.6-8.5); Neutrophils Percent Auto 70.9 % (45.5-73.1); Platelet Count Result 267 k/mm3 (150-375); Red Blood Count 5.14 M/mm3 (4.6-6.20); Red Cell Distribution Width 13.2 % (11.5-14.5); White Blood Count 16.9 K/mm3 (4.5-10.0)
[2020-01-26] MEDS: ONDANSETRON INJ 4 MG/2 ML VIAL IV PUSH (04:13)
[2020-01-26 04:47] LABS: Alanine Aminotransferase 14 U/L (4-50); Albumin Level 4.3 g/dL (3.5-5.1); Alkaline Phosphatase 103 U/L (38-126); Anion Gap 15 mmol/L (8-16); Aspartate Amino Transferase 21 U/L (17-59); Bilirubin,Total 0.4 mg/dL (0.2-1.3); Blood Urea Nitrogen 8 mg/dL (9-20); Calcium 9.4 mg/dL (8.4-10.2); Carbon Dioxide 17 mmol/L (22-30); Chloride 103 mmol/L (98-107); Estimated CRCL calculation 87 ml/min; Estimated Glomerular Filt Rate > 60; Glucose 242 mg/dL (75-110); Lipase 104 U/L (23-300); Potassium 3.2 mmol/L (3.4-5.0); Sodium 135 mmol/L (137-145)
[2020-01-26] MEDS: SODIUM CHLORIDE 0.9% IV 2,000 ML 999 ML IV CONT (04:53)
[2020-01-26 05:11] VITALS: BP 156/81; PULSE 82; RESP 20; O2SAT 96
[2020-01-26 06:05] VITALS: BP 161/84; PULSE 89; RESP 20; O2SAT 100
--- NOTE | 2020-01-26 06:05 | ED.ABDPAIN ---
HPI - Abdominal Pain General Chief Complaint: Abdominal Pain Stated Complaint: abd pain Time Seen by Provider: 01/26/20 03:46 History of Present Illness HPI narrative: Patient is a 64-year-old male who presents ER with sudden onset abdominal pain and retching. Began earlier this evening. Has history of gastric bypass and reports that due to how it is healed he will occasionally get irritation in the area and have uncontrolled vomiting and pain. Requesting Dilaudid for pain control. Denies recent fever/chills/sweats. No known sick contacts. No loose stools. Has found no alleviating factors at home. Related Data Home Medications Medication Instructions Recorded Confirmed amitriptyline 50 mg PO HS 04/10/19 11/05/19 escitalopram oxalate [Lexapro] 20 mg PO DAILY 04/10/19 11/05/19 Zyrtec 10 mg PO DAILY 09/06/19 11/05/19 atenolol 25 mg PO DAILY 09/06/19 11/05/19 fluticasone propionate [Flonase 2 spray INTRANASAL DAILY 09/06/19 11/05/19 Allergy Relief] pantoprazole 40 mg PO QAM 09/06/19 11/05/19 simethicone 80 mg PO 6XD 09/06/19 11/05/19 simvastatin 20 mg PO QPM 09/06/19 11/05/19 Allergies Allergy/AdvReac Type Severity Reaction Status Date / Time morphine AdvReac Mild Itching Verified 01/26/20 05:18 Review of Systems Review of Systems: All systems reviewed & are unremarkable except as noted in HPI and below Constitutional: Constitutional: Denies chills, Denies fever(s) and Reports weakness ENT: Denies nasal congestion and Denies sore throat Cardiovascular: Cardiovascular: Denies chest pain and Denies radiating jaw, neck or arm pain Gastrointestinal: Gastrointestinal: Reports abdominal pain, Denies diarrhea, Reports nausea and Reports vomiting Musculoskeletal: Musculoskeletal: Denies back pain and Denies muscle cramps PMF Past Medical History Medical History (Updated 01/26/20 @ 06:12 by Timmy Perea MD) Anxiety Bipolar disorder Gastroesophageal reflux 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 Hiatal hernia Hyperlipidemia Hypertension Hypothyroidism Obstructive sleep apnea Pre-diabetes Hemoglobin A1c was 6.1 on April 11, 2019. Reflux esophagitis SBO (small bowel obstruction) Surgical History Surgical History (Updated 04/15/19 @ 01:34 by Dia Teixeira PA-C) History of kyphoplasty L1. History of repair of hiatal hernia June 2018, with redo shortly thereafter. Performed at the [facility] in [place]. [facility] Social History Social History (Updated 11/05/19 @ 21:03 by Dia Teixeira PA-C) Social History: He lives in his own home in [place]. He had his 2 children, 1 son and 1 daughter. 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 He was in the [employer] for 4 years. He gets most of his care at the [facility] in [place]. He smoked up to 2 packs of cigarettes per day and quit about 4 years ago although it sounds like he may have a cigarette on occasion here and there. He used to abuse alcohol and stopped drinking 4 years ago. He smokes medical marijuana approximately 3 times per day due to chronic pain. Formally, he was addicted to prescription opioids. He designates his sister Sharee as his surrogate decision maker and wishes to be a full code. Smoking packs per day: 2 Smoking cigarettes per day: 40.0 Years smoked: 8 Smoking pack-years: 16.00 Smoking status: Former smoker Tobacco type: cigarettes Second hand tobacco smoke exposure: Yes Smoking end date: 04/05/15 Alcohol intake: former Drinks per week: 20 Substance use: current Substance use type: marijuana Other substance usage details: chepe sarmiento smoking Last use: 5 years sober from alcohol Gender identity (if verbalized by the patient): Male Spiritual care concerns: No Agree to blood products: Yes Exam Narrative: Exam Narrative: GENERAL: Ill-appearing, well-
--- NOTE | 2020-01-26 06:53 | PC.NURSE ---
pt states i do not feell good i dont think i can go home
--- NOTE | 2020-01-26 07:50 | PC.NURSE ---
WHILE SITTING IN WAITING ROOM AWAITING HIS RIDE HOME, PT WAS CONTINUOUSLY MOANING BUT ABLE TO STOP WHILE IN THE RESTROOM. WHEN HIS RIDE ARRIVED HE GOT UP FROM CHAIR AND AMBULATED FROM THE ED WITH A SLOW BUT STEADY GAIT. NO MOANING WAS NOTED AT THAT TIME
== END 2020-01-26 07:05 | disposition home or self-care (01) ==
PROVIDERS: Emergency Provider Emergency Medicine
DX: R10.13 Epigastric pain (principal); F41.9 Anxiety disorder, unspecified; F31.9 Bipolar disorder, unspecified; K21.9 Gastro-esophageal reflux disease without esophagitis; E78.5 Hyperlipidemia, unspecified; I10 Essential (primary) hypertension; E03.9 Hypothyroidism, unspecified; G47.33 Obstructive sleep apnea (adult) (pediatric); R73.03 Prediabetes; F17.210 Nicotine dependence, cigarettes, uncomplicated; K21.0 Gastro-esophageal reflux disease with esophagitis; Z98.84 Bariatric surgery status
CPT/HCPCS: 36415; 74177; 80053; 83690; 85025; 96361; 96374; 96375; 99284; J1170; J2060; J2405; J7030; Q9967

== ENCOUNTER 2025-05-05 14:46 | Outpatient (CLI) | payer OTHER, SELFPAY ==
--- NOTE | ~2025-05-05 | MR_ITS ---
EXAMINATION: MR knee RT wo con DATE: 05/05/2025 15:47 INDICATION: TECHNIQUE: Magnetic resonance imaging (MRI) of the affected knee was performed without intravenous contrast. Sequences included coronal PD-weighted FSE, coronal right knee pain PD-weighted FS FSE, sagittal T2-weighted FSE, sagittal PD-weighted FS FSE and axial PD weighted fat saturated FSE. COMPARISON: None. FINDINGS: Medial compartment: There is a longitudinal horizontal tear plane which begins at the lateral aspect of the posterior horn extending to the inner free edge and which extends more peripherally along the inferior articular surface of the medial posterior horn and at the body. There is additional small very small vertically oriented tear plane along the inner free edge at the junction of the posterior body and posterior horn, too small to assess whether radial, longitudinal or paired beak configuration. Articular cartilage is normal. Lateral compartment: Lateral meniscus is normal. Articular cartilage is normal. Patellofemoral compartment: Small deep chondral fissure at the medial patellar facet without degenerative subchondral changes. Remaining cartilage in the patellofemoral compartment is normal. Ligaments and tendons: Anterior and posterior cruciate ligaments are normal. The medial collateral ligament and fibular collateral ligament complex are normal. The extensor mechanism is normal. The visualized medial and lateral hamstring tendons as well as the iliotibial band are normal. Fluid: Physiologic amount of fluid in the joint space. No loose osteochondral bodies identified. Osseous/other: Normal marrow signal. No fracture or pathologic marrow replacing process. IMPRESSION: 1. Medial meniscal tear. 2. Single deep chondral fissure at the medial patellar facet. Reviewed, dictated and finalized at location A. [employer]
== END 2025-05-05 14:47 | disposition home or self-care (01) ==
DX: M25.561 Pain in right knee (principal); S83.241A Other tear of medial meniscus, current injury, right knee, initial encounter; M89.9 Disorder of bone, unspecified
CPT/HCPCS: 73721